=== PATIENT | female | born 1990 | race Caucasian/White ===

== ENCOUNTER 2020-09-04 05:24 | Inpatient (IN) | payer OTHER ==
[~2020-09-04] VITALS: Ht 177.8 cm; Wt 82.6 kg
[~2020-09-04 05:24] MED LIST: COLACE 100MG C100 MG PO; IBUPROFEN600 MG PO; LORTAB 5-325 M1 EACH PO; PRENATAL VITAM1 EAC3 PO
[2020-09-04 06:01] LABS: HEMOGLOBIN 11.2 gm/dl (12.3-15.3); RED BLOOD COUNT 4.43 M/UL (4.00-5.10); WHITE BLOOD COUNT 8.1 K/UL (4.5-11.0)
[2020-09-04] MEDS ORDERED: PRENATAL VITAM1 EAC3 PO (16:54)
[2020-09-05 06:01] LABS: HEMOGLOBIN 8.8 gm/dl (12.3-15.3)
[2020-09-05] MEDS ORDERED: IBUPROFEN600 MG PO (08:53)
[2020-09-05] MEDS ORDERED: DOCUSATE SODIU100 MG PO (08:53)
== END 2020-09-05 15:05 | disposition home or self-care (01) | DRG 806 ==
LOC: OB 05:24
PROVIDERS: Obstetrics & Gynecology; ADMIT Obstetrics & Gynecology
PROC: 10E0XZZ Delivery of Products of Conception, External Approach (ICD-10-PCS; principal; 2020-09-04)
PROC: 0KQM0ZZ Repair Perineum Muscle, Open Approach (ICD-10-PCS; 2020-09-04)
PROC: 0UQMXZZ Repair Vulva, External Approach (ICD-10-PCS; 2020-09-04)
PROC: 10907ZC Drainage of Amniotic Fluid, Therapeutic from Products of Conception, Via Natural or Artificial Opening (ICD-10-PCS; 2020-09-04)
DX: O69.81X0 Labor and delivery complicated by cord around neck, without compression, not applicable or unspecified (principal); O98.82 Other maternal infectious and parasitic diseases complicating childbirth; Z37.0 Single live birth; Z20.822 Contact with and (suspected) exposure to COVID-19; Z3A.39 39 weeks gestation of pregnancy; O70.1 Second degree perineal laceration during delivery; Z28.21 Immunization not carried out because of patient refusal; B95.1 Streptococcus, group B, as the cause of diseases classified elsewhere
CPT/HCPCS: 36415; 51702; 81001; 85014; 85018; 85025; 87635; J2590; J7120